=== PATIENT | female | born 1950 | race Caucasian/White ===

== ENCOUNTER 2019-10-30 10:21 | Inpatient (IN) | payer OTHER ==
[~2019-10-30] VITALS: Ht 167.6 cm; Wt 79.4 kg
[2019-10-30] MEDS ORDERED: LEVO88TA5 PO (17:50)
[2019-10-30] MEDS ORDERED: FLUO10CA27 PO (17:50)
[2019-10-30] MEDS ORDERED: OLAN2.5T3 PO (17:50)
[2019-10-30] MEDS ORDERED: THIA100T70 PO (17:50)
[2019-10-30] MEDS ORDERED: PANT40TA2 PO (17:50)
[2019-10-30] MEDS ORDERED: MAGNESIUM HYDROXIDE 30 ML UDC PO PRN (18:30)
[2019-10-30] MEDS ORDERED: LORAZEPAM 0.5 MG TABLET PO PRN (18:30)
[2019-10-30] MEDS ORDERED: ACETAMINOPHEN 325 MG TABLET PO PRN (18:30)
[2019-10-30] MEDS ORDERED: MAG HYDROX/AL HYDROX/SIMETH 30 ML UDC PO PRN (18:30)
--- NOTE | 2019-10-30 19:27 | NUR ---
GPS/RN-NOTES ADMITTED 69 YEARS OLD FEMALE PATIENT FROM [facility]. PATIENT AWAKE,ALERT ORIENTED X2 REFUSED TO SIGN ADMITTING PAPERS. CONTRABAND DONE,VALUABLES KEPT IN THE SAFE. DR. MARKS (PSYCHIATRIST) AND JOSE DONALDSON ([phone]) MADE AWARE OF THE ADMISSION.ENDORSE TO INCOMING NURSE FOR THE ADMISSION PROCESS AND CONTINUITY OF CARE.
[2019-10-30] MEDS ORDERED: BLOOD SUGAR DIAGNOSTIC 1 EACH STRIP IN ONE (20:00)
[2019-10-31 01:06] VITALS: BP 98/41
[2019-10-31 07:45] LABS: ALBUMIN 3.9 g/dL (3.4-5.0); BILIRUBIN,TOTAL 0.8 mg/dL (0.2-1.0); CALCIUM, SERUM 9.5 mg/dL (8.5-10.1); CREATININE 0.9 mg/dL (0.6-1.3); POTASSIUM 4.9 mmol/L (3.5-5.1); TOTAL PROTEIN, SERUM 6.8 g/dL (6.4-8.2)
[2019-10-31 08:00] VITALS: BP 124/69
[2019-10-31] MEDS: LEVOTHYROXINE SODIUM 88 MCG TABLET PO SCH (08:48)
[2019-10-31] MEDS: THIAMINE HCL 100 MG TABLET PO SCH (08:48)
[2019-10-31] MEDS: PANTOPRAZOLE 40 MG TABLET.DR PO SCH (08:48)
[2019-10-31] MEDS: ENSURE ENLIVE CHOC 237 ML CAN PO SCH ×2 (09:01→17:16)
[2019-10-31 16:00] VITALS: BP 112/70
[2019-10-31 19:32] LABS: APPEARANCE,URINE CLEAR (CLEAR); BILIRUBIN,URINE NEGATIVE (NEGATIVE); BLOOD, URINE NEGATIVE Ery/uL (NEGATIVE); COLOR,URINE YELLOW (YELLOW); KETONES,URINE NEGATIVE (NEGATIVE); LEUKOCYTE ESTERASE ,URINE NEGATIVE (NEGATIVE); NITRITE, URINE NEGATIVE (NEGATIVE); PH,URINE 6.5 (5.0-8.0); PROTEIN,URINE NEGATIVE (NEGATIVE); UGLUCOSE NEGATIVE (NEGATIVE); UROBILINOGEN,URINE 0.2 EU/dL (0.2)
[2019-10-31 20:37] VITALS: BP 100/71
[2019-10-31] MEDS: OLANZAPINE 2.5 MG TABLET PO SCH (21:51)
[2019-11-01] MEDS: PANTOPRAZOLE 40 MG TABLET.DR PO SCH (07:32)
[2019-11-01] MEDS: LEVOTHYROXINE SODIUM 88 MCG TABLET PO SCH (07:32)
[2019-11-01 07:49] LABS: BASOPHILS # (AUTO) 0.1 /CMM (0.0-0.2); BASOPHILS % (AUTO) 2.2 % (0.0-2.0); EOSINOPHILS % (AUTO) 2.8 % (0.0-6.0); HEMATOCRIT 37 % (33-45); HEMOGLOBIN 13.1 g/dL (11.5-14.8); LYMPHOCYTES # (AUTO) 1.8 /CMM (0.8-4.8); LYMPHOCYTES % (AUTO) 46.5 % (20.0-44.0); MEAN CORPUSCULAR HGB CONC 35 g/dl (31.0-36.0); MEAN CORPUSCULAR VOLUME 91 fL (82-100); MONOCYTES # (AUTO) 0.5 /CMM (0.1-1.30); MONOCYTES % (AUTO) 13.8 % (2.0-12.0); NEUTROPHILS # (AUTO) 1.4 /CMM (1.8-8.9); NEUTROPHILS % (AUTO) 34.7 % (43.0-81.0); PLATELET COUNT (AUTO) 256 /CMM (150-450); RED BLOOD CELL COUNT(AUTO) 4.12 MIL/uL (4.0-5.2); WHITE BLOOD COUNT (AUTO) 3.9 K/uL (4.3-11.0)
[2019-11-01 08:00] VITALS: BP 110/69
[2019-11-01 08:06] LABS: THYROID STIMULATING HORMONE 1.793 uIU/mL (0.358-3.74)
[2019-11-01] MEDS: ENSURE ENLIVE CHOC 237 ML CAN PO SCH ×2 (08:14→17:11)
--- NOTE | 2019-11-01 09:00 | NUR ---
RN NOTE- RECEIVED PATIENT SITTING IN BED AWAKE,ALERT,CALM,NO ACUTE DISTRESS NOTED. COMPLIANT WITH MEDICATIONS.AMBULATORY STEADY GAIT. ALL NEEDS ATTENDED AND ANTICIPATED. WILL CONT. MONITORING Q15 MINS. FOR SAFETY AND BEHAVIOR.
[2019-11-01] MEDS: FLUOXETINE HCL 20 MG CAPSULE PO SCH (09:10)
[2019-11-01] MEDS: THIAMINE HCL 100 MG TABLET PO SCH (09:10)
--- NOTE | 2019-11-01 09:15 | NUR ---
DPOA Contact with : BLAZE met with the pts MD, Dr. Fontaine, who provided the SW with the essential information on this case. MD proceeded to call pts DPOA, Kelly ([phone]), to discuss the pts discharge plan. It was discussed that the pt does not have any family that can assist her in [place] and that her boyfriend in [place] has abandoned her. In that regard, it was discussed that one of the pts daughter who lives in [place] will be flying to [place] on Friday but may be quarantined for 2 weeks after she lands. informed the DPOA that the pt cannot stay in the hospital setting that long and asked what other alternatives there are. also expressed that the SW will not be able to place the pt in a SNF setting due to the pts HMO insurance. discussed an Assisted Living option with Kelly and stated that the SW will call her with some soto ranges for Assisted Living in this area.
--- NOTE | 2019-11-01 12:18 | NUR ---
UR Note: BLAZE called the pts [employer] [place] [employer] telephonic case manager, Oliva ([phone]), and informed her that the SW will be faxing over information needed for the clinical. BLAZE stated that while they were on the line together that she would like to provide case information to see if the insurance company can assist with placement. BLAZE was told that the insurance company would be able to assist with placement if the pt had MediCa[employer].
--- NOTE | 2019-11-01 12:20 | NUR ---
UR Note: BLAZE faxed a clinical to [facility] with attention to pt's vocational case manager, Oliva ([phone]), to the fax number: [phone].
--- NOTE | 2019-11-01 12:22 | NUR ---
UR Note: Pt's director of casework department, Oliva ([phone]), called the SW and stated that the pt is authorized from 10/29-11/02 with a review due on 11/04/19. She stated that if there is no medication change by then or PRN request on that day from the pt then the pt may not meet criteria for additional authorization.
--- NOTE | 2019-11-01 13:11 | NUR ---
Friend Contact: Pts friend and advocate, Alex ([phone]), called the SW and stated that she lives in [facility] and is a Marriage and Family Therapist. She stated that she was asked by , Dr. Fontaine, to come to the hospital and inform the pt that her daughter has passed. She informed the SW that she no longer feels comfortable entering the hospital due to COVID and therefore would like to speak to the pt with her DPOA, Kelly, on a three way call with the SW present. SW stated that can be arranged at around 3pm today. Addendum: 11/01/19 at 1317 by MARCUS THAKUR Pts friend also stated that she knows of facilities in the [facility] area that may be willing to accept the pt and stated that she would never some notes/information to set that up. SW stated that she will assist in any way that she can.
--- NOTE | 2019-11-01 14:48 | NUR ---
Initial Discharge Plan: Pt currently resides in her located at [address] [place] [address], [place] [address] with her friend Juan. Per pt, she would like to return to her home once she and her daughter are stable. SW will work with the pt and the MD regarding appropriate discharge planning. SW will form a safe and proper discharge.
--- NOTE | 2019-11-01 14:49 | NUR ---
DPOA Contact: SW called the pts DPOA, Kelly ([phone]), and discussed the pts discharge plan. SW expressed that the best placement would be with an Assisted Living and then expressed the pricing for a monthly rate. Pts DPOA stated that the pt would most likely not need to be in a placement for a month, she stated that it would be two weeks mostly. SW stated that the pt can be placed temporarily for as long as it takes. Pts DPOA stated that the pts other daughter is flying in this week. It was expressed that the DPOA wants the SW to speak to the pt about her daughter's on a [address] call and SW stated that she has scheduled it for 3pm.
--- NOTE | 2019-11-01 15:41 | NUR ---
Intervention with the pt and the DPOA: BLAZE and pts nurse Amol went into the pts room with a hand held phone that the pts friend/therapist, DPOA, and another friend were on. They had created a four way call to inform the pt that her daughter had the previous day. BLAZE and pts nurse attended this call to support the pt and assess her needs. Pt was observed to be staring at the ceiling, rubbing her feet together, and had trembling hands during this call. Pt became focused on her discharge and appeared to avoid processing the of her daughter. Pt spoke about her daughter in the past tense when she stated, "She was a beautiful person." Pt was informed that her other daughter is flying from [place] [facility] on Friday and that she will quarantine for 2 weeks and then help the pt fly back to her home and settle in there. It was explained to the pt that in the meantime, she would be living in an assisted living facility. Pt then asked to be left alone so that she can grieve. BLAZE expressed that she will get checked on.
--- NOTE | 2019-11-01 15:46 | NUR ---
Friend Contact: Pts friend and advocate, Alex ([phone]), called the SW and discussed how the SW observed the pt during the phone call. Then she stated that she is going to reach out to facilities in [facility] that are close to her and start attempting to find an accepting facility. She stated that she needed some paperwork and asked the SW to email them to her. SW had previously asked the pts Kelly GARCIA ([phone]), if this was acceptable and she had stated to give Alex anything that she requests as she is assisting.
[2019-11-01 16:00] VITALS: BP 141/56
[2019-11-01 20:05] VITALS: BP 99/57
[2019-11-01 21:50] VITALS: BP 121/59
[2019-11-01] MEDS: OLANZAPINE 2.5 MG TABLET PO SCH (21:52)
[2019-11-02 07:44] LABS: CALCIUM, SERUM 8.7 mg/dL (8.5-10.1); CREATININE 0.7 mg/dL (0.6-1.3); POTASSIUM 4.1 mmol/L (3.5-5.1)
[2019-11-02] MEDS: PANTOPRAZOLE 40 MG TABLET.DR PO SCH (07:47)
[2019-11-02] MEDS: LEVOTHYROXINE SODIUM 88 MCG TABLET PO SCH (07:48)
[2019-11-02] MEDS: ENSURE ENLIVE CHOC 237 ML CAN PO SCH ×2 (07:50→18:09)
[2019-11-02 08:00] VITALS: BP 120/78
[2019-11-02] MEDS: THIAMINE HCL 100 MG TABLET PO SCH (08:59)
[2019-11-02] MEDS: FLUOXETINE HCL 20 MG CAPSULE PO SCH (08:59)
--- NOTE | 2019-11-02 09:00 | NUR ---
RN NOTE- PT IN BED, FLAT AFFECT WITHDRAWN ISOLATIVE "I WANT TO BE LEFT ALONE" FOUND OUT YESTERDAY THAT HER DAUGHTER . THUS FAR RN SEES NO INDICATIONS THAT SHES PROCESSING SUCH NEWS. PO INTAKE FAIR, DENIES ALL. MED COMPLIANT
--- NOTE | 2019-11-02 14:28 | NUR ---
DPOA Contact: BLAZE called the pts Kelly GARCIA ([phone]), and discussed the multiple options for the pts discharge that will ensure the most amount of comfort for the pt and everyone involved in the case. In the end it was discussed that certain aspects need to be discussed with Dr Fontaine such as the pts prescriptions, a possible sedative, and a possible COVID test. BLAZE was asked to look into car/escort services that can transport the pt and her daughter to the airport in a comfortable manner.
--- NOTE | 2019-11-02 15:15 | NUR ---
Individual Intervention: SW encouraged the pt to engage in group therapy but the pt stated that she does not like to interact with people that she does not know. SW encouraged the pt to try but she refused. SW proceeded to meet with the pt at [facility] to discuss discharge planning as well as any emotions she may be feeling around her daughters . SW stated that her other daughter will be flying in on Friday and that on Friday they will fly to [place] together. Pt expressed contentment with this plan and stated that she did not want to talk any further.
[2019-11-02 16:00] VITALS: BP 120/72
[2019-11-02 20:20] VITALS: BP 130/68
[2019-11-02] MEDS: OLANZAPINE 2.5 MG TABLET PO SCH (21:26)
[2019-11-03 08:00] VITALS: BP 119/77
[2019-11-03] MEDS: FLUOXETINE HCL 20 MG CAPSULE PO SCH (08:12)
[2019-11-03] MEDS: THIAMINE HCL 100 MG TABLET PO SCH (08:13)
[2019-11-03] MEDS: PANTOPRAZOLE 40 MG TABLET.DR PO SCH (08:13)
[2019-11-03] MEDS: LEVOTHYROXINE SODIUM 88 MCG TABLET PO SCH (08:13)
[2019-11-03] MEDS: ENSURE ENLIVE CHOC 237 ML CAN PO SCH ×2 (08:15→16:29)
--- NOTE | 2019-11-03 12:12 | NUR ---
DPOA Contact/Probable Cause Hearing Notification: BLAZE called the pts DPOA, Kelly ([phone]), and informed her that there is a probable cause hearing today and explained what that entails. BLAZE stated that she would call her and update her as soon as the hearing is completed. BLAZE also provided her with a transportation service for the discharge on Friday.
--- NOTE | 2019-11-03 12:35 | NUR ---
DPOA Contact: BLAZE called the pts Kelly GARCIA ([phone]), and informed her that the pt did not contest the hold and that she will be remaining here in the hospital on her hold because the major gifts officer kept the hold.
[2019-11-03 16:00] VITALS: BP 147/67
--- NOTE | 2019-11-03 16:14 | NUR ---
Individual Counseling: Goal: Patient will meet with SW today at 1:00 pm for individual counseling. Intervention: SW facilitated counseling session with patient regarding Positive Coping Mechanisms at bedside. SW explored positive coping mechanisms the pt. has used in the past. SW educated patient on additional positive coping mechanisms including: self-soothing, Daily Affirmations, and emotional awareness techniques. Response: Patient was agreeable to participating in individual counseling session. The patient was alert, made proper eye contact and remained cooperative throughout counseling session. The patient stated that she has practiced meditation in the past as a relaxation method and has a good friend, Jessee who she can count on for emotional support. The patient stated, I have heard of Mindfulness in the past and I am now curious to try it, thanks for explaining it. Plan: Patient will meet with SW today at 1:00 pm for individual counseling.
[2019-11-03 20:12] VITALS: BP 98/49
[2019-11-03] MEDS: OLANZAPINE 2.5 MG TABLET PO SCH (22:01)
[2019-11-03] MEDS: ZOLPIDEM TARTRATE 5 MG TABLET PO PRN (22:08)
[2019-11-04] MEDS: PANTOPRAZOLE 40 MG TABLET.DR PO SCH (07:14)
[2019-11-04] MEDS: LEVOTHYROXINE SODIUM 88 MCG TABLET PO SCH (07:14)
--- NOTE | 2019-11-04 07:32 | NUR ---
GPS RN NOTE: OPENING RECEIVED PATIENT IN BED, AOX3. PATIENT IS WITHDRAWN BUT COOPERATIVE AND MED COMPLIANT. BLUNTED AFFECT. AMBULATORY WITH STEADY GAIT. BREATHING IS EVEN AND UNLABORED WITH EQUAL RISE AND OF FALL OF CHEST. PATIENT DENIES PAIN AND IS EXHIBITING NO SIGNS OF DISTRESS. SAFETY PRECAUTIONS IN PLACE. BED IN LOCKED AND LOW POSITION WITH 2 SIDE RAILS UP FOR SAFETY. NEEDS MET. WILL CONTINUE TO MONITOR Q15 FOR MOOD, SAFETY AND BEHAVIOR.
[2019-11-04] MEDS: ENSURE ENLIVE CHOC 237 ML CAN PO SCH ×2 (07:44→17:43)
[2019-11-04 08:00] VITALS: BP 105/59
[2019-11-04] MEDS: THIAMINE HCL 100 MG TABLET PO SCH (08:21)
[2019-11-04] MEDS: FLUOXETINE HCL 20 MG CAPSULE PO SCH (08:21)
--- NOTE | 2019-11-04 09:28 | NUR ---
UR NOTE: BLAZE called the pts [employer] [place] [employer] correctional casework specialist, Oliva ([phone]) and completed a live clinical review via voicemail.
--- NOTE | 2019-11-04 12:01 | NUR ---
GPS RN NOTE: D/C PLAN / DIRECTOR OF CONSTRUCTION TIME KAROL GARCIA CALLED AND REQUESTED 1030 DIRECTOR OF CONSTRUCTION TIME ON FRIDAY.
--- NOTE | 2019-11-04 12:09 | NUR ---
UR NOTE: Pt's community case manager, Oliva ([phone]), called the SW and stated that the pt is authorized from 11/04/19-11/06/19. She requested SW fax clinical notes from 11/02/19 and 11/03/19. BLAZE faxed clinical noted to .
--- NOTE | 2019-11-04 13:03 | NUR ---
UR Note: BLAZE faxed a clinical to [facility] with attention to pt's case management specialist, Oliva ([phone]), to the fax number: [phone].
--- NOTE | 2019-11-04 13:03 | NUR ---
Individual Intervention: SW spoke to the bed at beside and offered individual therapy as the pt refuses to participate in group. Pt had stated that she does not want to participate in group therapy as she enjoys being alone especially now that she is grieving. SW asked the pt how she has been feeling with the news of her loss and the pt stated, "I feel like I am currently in denial. I know I was told that my daughter passed but it has been hard for me to accept it when I have not seen her and she had told me that she was getting better. I do not know if it is possible for her to come back from the , I mean I hear things about cures being possible for things that were not possible earlier, but I think I am just in denial." SW stated that it is appropriate for her to feel this way as it is a stage of grief. SW stated that it may help her to see her other daughter on Friday morning and that it will be helpful for her to accept the fact. Pt agreed with the SW and stated that she is looking forward to returning to her home which is a comfortable environment for her. Pt expressed to the SW some positive ways that she jaquelin such as reading books from her favorite author (Michael Aburto), pulling out the weeds in her garden, and reading children's foreign language. SW expressed that those are all positive coping mechanisms and that she must allow herself to be patient with herself during this grieving process.
[2019-11-04 16:00] VITALS: BP 115/72
[2019-11-04] MEDS: OLANZAPINE 2.5 MG TABLET PO SCH (21:02)
[2019-11-04 21:07] VITALS: BP 126/61
[2019-11-05 08:00] VITALS: BP 134/66
[2019-11-05] MEDS: LEVOTHYROXINE SODIUM 88 MCG TABLET PO SCH (08:30)
[2019-11-05] MEDS: PANTOPRAZOLE 40 MG TABLET.DR PO SCH (08:30)
[2019-11-05] MEDS: THIAMINE HCL 100 MG TABLET PO SCH (08:30)
[2019-11-05] MEDS: ENSURE ENLIVE CHOC 237 ML CAN PO SCH ×2 (08:31→17:30)
[2019-11-05] MEDS: FLUOXETINE HCL 20 MG CAPSULE PO SCH (12:14)
--- NOTE | 2019-11-05 13:19 | NUR ---
DPOA Contact: BLAZE called the pts Kelly GARCIA ([phone]), to confirm the details of the pts discharge tomorrow. BLAZE stated that she would have the nurses fax the prescriptions to the pharmacy so that the pt can have her medications without any delay.
--- NOTE | 2019-11-05 15:17 | NUR ---
Discharge Note: Pt was discharged to [facility] airport located at [address] [place] [address] with her daughter, Jamee, at around 9:30AM. Pt was picked up via private public transit bus driver by the name of Jered and the pts daughter will be present. Pt will return to her home located at [address] [place], [address]. Pts Kelly GARCIA ([phone]), is aware of the discharge plan. RN will determine the pts mood, affect, and orientation at the time of discharge. Pts RN will also assess for any suicidal/homicidal ideation and auditory/visual hallucinations. Pt will follow up with [facility] for mental health services located at [id number], [place] [address]; ; and a fax: ([phone]) was sent. Pt will follow up with her break out worker, Dr. Iesha Kilpatrick, located at [address], [place] [address]; .
[2019-11-05 16:00] VITALS: BP 103/54
[2019-11-05 20:13] VITALS: BP 101/58
[2019-11-05] MEDS: OLANZAPINE 2.5 MG TABLET PO SCH (21:18)
[2019-11-05] MEDS: ZOLPIDEM TARTRATE 5 MG TABLET PO PRN (21:56)
--- NOTE | 2019-11-06 07:43 | NUR ---
DR. MARKS GAVE AN ORDER TO D/C HOLD D/C HOME. PT. IS BEING DISCHARGE TO [facility] WITH HER DAUGHTER EYAL. PT. WILL RETURN TO HER HOME LOCATED AT [address] [place] [address]. PT. TO FOLLOW UP WITH THE PSYCHIATRIST AT [facility] LOCATED AT [id number], [place] [address] WITH THE TEL# OF [phone] AND TO FOLLOW UP WITH THE ADMINISTRATIVE TECHNICIAN DR. ANNIE NGUYEN LOCATED AT [id number] [place] [address] AND WITH THE TEL# OF [phone]. Addendum: 11/06/19 at 0949 [address] A[address] CRUZ MADE AWARE OF THE DISCHARGE.
[2019-11-06] MEDS: PANTOPRAZOLE 40 MG TABLET.DR PO SCH (07:49)
[2019-11-06] MEDS: LEVOTHYROXINE SODIUM 88 MCG TABLET PO SCH (07:49)
[2019-11-06 08:00] VITALS: BP 108/65
[2019-11-06] MEDS: ENSURE ENLIVE CHOC 237 ML CAN PO SCH (08:10)
[2019-11-06] MEDS: THIAMINE HCL 100 MG TABLET PO SCH (08:10)
[2019-11-06] MEDS: FLUOXETINE HCL 20 MG CAPSULE PO SCH (08:10)
--- NOTE | 2019-11-06 09:13 | NUR ---
RN NOTE- PT ALERT ORIENTED TO PERSON PLACE TIME. CONFUSION STILL REMAINS REGARDING PASSING OF DAUGHTER. DC THIS MORNING AT 0930. DENIES SI HI H VH. PO INTAKE GOOD MED COMPLIANT. PREPARE FOR DC
--- NOTE | 2019-11-06 09:49 | NUR ---
CALLED THE JOSE ROBERSON AT [phone] TO NOTIFY THAT PT. IS FOR DISCHARGE TODAY.
--- NOTE | 2019-11-06 10:15 | NUR ---
WAFER LINE WORKER NOTE- PT DC TO CARE OF DAUGHTER AT THIS TIME. PT TO BE DRIVEN TO LAX TO FLY HOME TO [place] W FAMILY. DR CRUMP AWARE. ALERT ORIENTED TO PERSON PLACE TIME, VITAL SIGNS STABLE DENIES SI HI AH VH AT PRESENT, SHOWERED CHANGED CLOTHING, ATE 100% AM MEAL AND MED COMPLIANT W MORNING RX. AFTERCARE AND DC INSTRUCTIONS REVIEWED W PT AND COPIES GIVEN TO FAMILY. VALUABLES RETURNED TO PT AND SIGNED FOR. PRESCRIPTIONS PROVIDED W AFTERCARE AND DC INSTRUCTIONS. ID [id number] REMOVED. ESCORTED OFF UNIT BY STAFF.
--- NOTE | 2019-11-08 13:57 | NUR ---
UR Note: BLAZE faxed a discharge clinical to [facility] with attention to pt's ed case manager, Oliva ([phone]), to the fax number: [phone].
== END 2019-11-06 10:15 | disposition home or self-care (01) | DRG 885 ==
LOC: GPS 17:30
PROVIDERS: ADMIT Psychiatry & Neurology Psychiatry; ATTEND Nurse Practitioner Acute Care
DX: F33.3 Major depressive disorder, recurrent, severe with psychotic symptoms (principal); E22.2 Syndrome of inappropriate secretion of antidiuretic hormone; F43.21 Adjustment disorder with depressed mood; K21.9 Gastro-esophageal reflux disease without esophagitis; E66.9 Obesity, unspecified; E03.9 Hypothyroidism, unspecified; Z73.6 Limitation of activities due to disability; F29 Unspecified psychosis not due to a substance or known physiological condition; F41.9 Anxiety disorder, unspecified; K74.60 Unspecified cirrhosis of liver; E66.01 Morbid (severe) obesity due to excess calories; Z68.28 Body mass index [BMI] 28.0-28.9, adult; Z79.899 Other long term (current) drug therapy; K76.9 Liver disease, unspecified; T43.225A Adverse effect of selective serotonin reuptake inhibitors, initial encounter; Y92.89 Other specified places as the place of occurrence of the external cause
CPT/HCPCS: 36415; 80048-TC; 80053-TC; 80061-TC; 81000-TC; 82962-TC; 84443-TC; 85025-TC